=== PATIENT | male | born 1950 | race African-American/Black ===

== ENCOUNTER 2019-03-18 15:41 | Inpatient (IN) | payer MEDICARE, BC ==
[~2019-03-18] VITALS: Ht 172.7 cm; Wt 88.5 kg
[2019-03-18] VITALS (21 sets, daily range): BP systolic 109–138; BP diastolic 62–77
[~2019-03-18 15:41] MED LIST: ALLO300T2 MT; ASPI-1393 MT; CHOL200074 MT; HYDR25TA MT; LOSA100T32 MT; LOVA40TA73 MT; METF-416 MT; OMEG1CAP94 PO
[2019-03-18] MEDS ORDERED: LEVETIRACETAM 1000MG/100ML 100 ML IV ONE (16:00)
[2019-03-18 16:16] LABS: BASOPHILS % 1.2 % (0.0-2.0); CHLORIDE 103 mEq/L (98-107); EOSINOPHILS % 2.2 % (0.0-5.0); HEMATOCRIT. 36.8 % (42.0-52.0); HEMOGLOBIN. 11.9 g/dL (14.0-18.0); LYMPHOCYTES % 21.4 % (20.0-50.0); MEAN CORPUSCULAR HEMOGLOBIN 30.8 pg (28.0-32.0); MEAN CORPUSCULAR VOLUME 94.7 fL (80.0-94.0); MEAN PLATELET VOLUME 8.3 fl (7.4-10.4); MONOCYTES % 9.6 % (2.0-8.0); NEUTROPHILS % 65.6 % (40.0-76.0); PLATELET 233 x1000/uL (130-400); RED BLOOD CELL COUNT 3.88 mill/uL (4.7-6.1); RED CELL DISTRIBUTION WIDTH 13.1 % (11.6-14.6)
[2019-03-18 16:20] LABS: ETHANOL BLOOD < 10 mg/dL
[2019-03-18 16:21] LABS: PARTIAL THROMBOPLASTIN TIME 28.5 sec (23.4-31.0); PROTHROMBIN TIME 10.3 sec (9.6-11.0)
[2019-03-18 18:17] LABS: CLARITY URINE CLEAR (CLEAR); COLOR URINE YELLOW (YELLOW); KETONES URINE NEGATIVE (NEGATIVE); LEUKOCYTE ESTERASE URINE NEGATIVE (NEGATIVE); NITRITE URINE NEGATIVE (NEGATIVE); OCCULT BLOOD URINE NEGATIVE (NEGATIVE); PROTEIN URINE NEGATIVE (NEGATIVE); SPECIFIC GRAVITY URINE 1.034 (1.005-1.030); UROBILINOGEN URINE 0.2 E.U./dL (0.2-1.0)
[2019-03-18 18:34] LABS: *AMPHETAMINES SCREEN URINE NEGATIVE (NEGATIVE); *BARBITURATES SCREEN URINE NEGATIVE (NEGATIVE); *BENZODIAZEPINES SCREEN URINE NEGATIVE (NEGATIVE); *COCAINE SCREEN URINE NEGATIVE (NEGATIVE); METHADONE URINE SCREEN NEGATIVE (NEGATIVE); OPIATES URINE SCREEN NEGATIVE (NEGATIVE)
[2019-03-18 18:35] LABS: CANNABINOID URINE SCREEN NEGATIVE (NEGATIVE); PHENCYCLIDINE URINE SCREEN NEGATIVE (NEGATIVE)
[2019-03-18] MEDS ORDERED: MAGNESIUM/ALUMINUM HYDROXIDE/SIMETHICONE 30ML UDC PO PRN (19:00)
[2019-03-18] MEDS ORDERED: HYDROCODONE/ACETAMINOPHEN 5/325MG TABLET PO PRN (19:00)
[2019-03-18] MEDS ORDERED: ACETAMINOPHEN 325MG TABLET PO PRN (19:00)
[2019-03-18] MEDS ORDERED: DEXTROSE 50% WATER 50ML SYRINGE IV PRN (19:00)
[2019-03-18] MEDS ORDERED: CLONIDINE 0.1MG TABLET PO PRN (19:00)
[2019-03-18] MEDS ORDERED: MORPHINE SULFATE 2 MG/ML CPJ (NOT FOR IM USE) IV PRN (20:30)
[2019-03-18] MEDS ORDERED: NICARDIPINE 100 MG in SODIUM CHLORIDE 0.9% 60 ML IV PRN (20:30)
[2019-03-18] MEDS ORDERED: NITROPRUSSIDE 50 MG in SODIUM CHLORIDE 0.9% 250 ML IV PRN (20:45)
[2019-03-18] MEDS: LEVETIRACETAM 500 MG in SODIUM CHLORIDE 0.9% 100 ML IV SCH (21:20)
[2019-03-18] MEDS: DEXT 5%/0.45% NACL 1000ML 1,000 ML IV SCH (21:20)
[2019-03-19] VITALS (77 sets, daily range): BP systolic 91–150; BP diastolic 38–92
[2019-03-19] MEDS: DEXAMETHASONE 4MG/ML 1ML VIAL IV SCH ×5 (00:29→23:06)
[2019-03-19] MEDS: BLOOD SUGAR DIAGNOSTIC STRIP TEST SCH ×5 (00:29→23:11)
[2019-03-19 04:49] LABS: BASOPHILS % 0.4 % (0.0-2.0); EOSINOPHILS % 1.1 % (0.0-5.0); HEMATOCRIT. 36.4 % (42.0-52.0); HEMOGLOBIN. 11.8 g/dL (14.0-18.0); LYMPHOCYTES % 8.9 % (20.0-50.0); MEAN CORPUSCULAR HEMOGLOBIN 30.7 pg (28.0-32.0); MEAN PLATELET VOLUME 8.3 fl (7.4-10.4); MONOCYTES % 3.5 % (2.0-8.0); NEUTROPHILS % 86.1 % (40.0-76.0); PLATELET 232 x1000/uL (130-400); RED BLOOD CELL COUNT 3.84 mill/uL (4.7-6.1); RED CELL DISTRIBUTION WIDTH 12.9 % (11.6-14.6)
[2019-03-19 05:08] LABS: CHLORIDE 106 mEq/L (98-107)
[2019-03-19 05:14] LABS: PHOSPHORUS 3.3 mg/dL (2.5-4.9)
[2019-03-19 05:15] LABS: LDL CHOLESTEROL 78 mg/dL (5-100)
[2019-03-19 05:16] LABS: HDL CHOLESTEROL 39 mg/dL (40-59)
[2019-03-19] MEDS ORDERED: LIDOCAINE HCL/EPINEPHRINE 1%-EPI 1:100,000 20 ML VIAL ONE (05:31)
[2019-03-19] MEDS ORDERED: BACITRACIN 50,000 UNITS/VIAL ONE (05:32)
[2019-03-19] MEDS ORDERED: THROMBIN (BOVINE) 5000 UNITS/VIAL TOP ONE (05:32)
[2019-03-19] MEDS ORDERED: FENTANYL CITRATE/PF 50MCG/ML 2ML VIAL ONE ×3 (06:26→07:31)
[2019-03-19] MEDS ORDERED: ROCURONIUM BROMIDE 10MG/ML VIAL 5ML IV ONE (06:26)
[2019-03-19] MEDS ORDERED: PROPOFOL 200MG/20ML VIAL IV ONE (06:26)
[2019-03-19] MEDS ORDERED: NEOSTIGMINE METHYLSULFATE 1MG/ML 10 ML VIAL ONE (06:26)
[2019-03-19] MEDS ORDERED: MIDAZOLAM HCL 2 MG/2 ML VIAL ONE (06:27)
[2019-03-19] MEDS ORDERED: GLYCOPYRROLATE 0.2 MG/ML 2ML VIAL ONE ×2 (06:27→07:26)
[2019-03-19] MEDS ORDERED: ONDANSETRON HCL 4MG/2ML INJ ONE (06:41)
[2019-03-19] MEDS ORDERED: DEXAMETHASONE 4MG/ML 1ML VIAL ONE (06:41)
[2019-03-19] MEDS ORDERED: MEPERIDINE HCL/PF 25MG/ML CPJ IV PRN (07:00)
[2019-03-19] MEDS ORDERED: HYDROMORPHONE HCL/PF 2MG/ML CPJ IV PRN (07:00)
[2019-03-19] MEDS ORDERED: ONDANSETRON HCL 4MG/2ML INJ IV PRN (07:00)
[2019-03-19] MEDS ORDERED: LABETALOL HCL 5MG/ML VIAL 20ML IV PRN (07:00)
[2019-03-19] MEDS ORDERED: BACITRACIN 15GM TUBE TOP ONE (07:14)
[2019-03-19] MEDS ORDERED: SODIUM CHLORIDE 0.9% 10ML VIAL ONE (07:22)
[2019-03-19] MEDS ORDERED: LABETALOL HCL 5MG/ML VIAL 20ML IV ONE (07:22)
[2019-03-19] MEDS ORDERED: CEFAZOLIN SODIUM 1000MG/VIAL ONE (07:22)
[2019-03-19] MEDS: MORPHINE SULFATE 2 MG/ML CPJ (NOT FOR IM USE) IV PRN ×4 (07:53→19:15)
[2019-03-19] MEDS ORDERED: PROPOFOL 10MG/ML 100ML 100 ML IV PRN (08:15)
[2019-03-19] MEDS: LEVETIRACETAM 500 MG in SODIUM CHLORIDE 0.9% 100 ML IV SCH ×2 (09:02→21:28)
[2019-03-19] MEDS: NICARDIPINE 100 MG in SODIUM CHLORIDE 0.9% 60 ML IV PRN (10:52)
[2019-03-19] MEDS: DOCUSATE SODIUM 100MG CAPSULE PO SCH (10:53)
[2019-03-19] MEDS: DEXT 5%/0.45% NACL 1000ML 1,000 ML IV SCH (11:28)
[2019-03-19] MEDS: CEFAZOLIN 1000MG PREMIX 50 ML IV SCH ×2 (13:04→22:48)
[2019-03-19] MEDS ORDERED: CEFAZOLIN SODIUM 1000MG/VIAL IV SCH (14:00)
[2019-03-19] MEDS: INSULIN LISPRO 100 UNITS/ML SUBCUT SCH ×2 (17:47→23:15)
[2019-03-19] MEDS: DEXT 5%/LACTATED RINGERS 1,000 ML IV SCH (17:54)
[2019-03-20] VITALS (94 sets, daily range): BP systolic 91–146; BP diastolic 45–86
[2019-03-20] MEDS: NICARDIPINE 100 MG in SODIUM CHLORIDE 0.9% 60 ML IV PRN ×2 (01:51→19:54)
[2019-03-20 04:27] LABS: HEMATOCRIT. 38.2 % (42.0-52.0); HEMOGLOBIN. 12.4 g/dL (14.0-18.0); MEAN CORPUSCULAR HEMOGLOBIN 30.7 pg (28.0-32.0); MEAN CORPUSCULAR VOLUME 94.7 fL (80.0-94.0); MEAN PLATELET VOLUME 8.2 fl (7.4-10.4); PLATELET 234 x1000/uL (130-400); RED BLOOD CELL COUNT 4.03 mill/uL (4.7-6.1); RED CELL DISTRIBUTION WIDTH 13.2 % (11.6-14.6)
[2019-03-20 04:35] LABS: CHLORIDE 105 mEq/L (98-107)
[2019-03-20] MEDS: BLOOD SUGAR DIAGNOSTIC STRIP TEST SCH ×3 (05:05→18:00)
[2019-03-20] MEDS: INSULIN LISPRO 100 UNITS/ML SUBCUT SCH ×3 (05:08→18:30)
[2019-03-20] MEDS: DEXAMETHASONE 4MG/ML 1ML VIAL IV SCH ×3 (05:08→18:18)
[2019-03-20] MEDS: CEFAZOLIN 1000MG PREMIX 50 ML IV SCH (05:08)
[2019-03-20] MEDS: DOCUSATE SODIUM 100MG CAPSULE PO SCH (09:00)
[2019-03-20 09:19] LABS: PLATELET ESTIMATE NORMAL
[2019-03-20] MEDS: DEXT 5%/LACTATED RINGERS 1,000 ML IV SCH (12:46)
[2019-03-20] MEDS: LEVETIRACETAM 500 MG in SODIUM CHLORIDE 0.9% 100 ML IV SCH (12:46)
[2019-03-20] MEDS: FAMOTIDINE 20MG/2ML VIAL IV SCH (16:49)
[2019-03-20] MEDS: LEVETIRACETAM 750 MG in SODIUM CHLORIDE 0.9% 100 ML IV SCH (18:30)
[2019-03-20] MEDS: MORPHINE SULFATE 2 MG/ML CPJ (NOT FOR IM USE) IV PRN (21:50)
[2019-03-20] MEDS: ONDANSETRON HCL 4MG/2ML INJ IV PRN (22:05)
[2019-03-20] MEDS ORDERED: MORPHINE SULFATE 2 MG/ML CPJ (NOT FOR IM USE) IV NR (22:45)
[2019-03-21] VITALS (93 sets, daily range): BP systolic 93–157; BP diastolic 54–81
[2019-03-21] MEDS: BLOOD SUGAR DIAGNOSTIC STRIP TEST SCH ×4 (00:16→17:28)
[2019-03-21] MEDS: DEXAMETHASONE 4MG/ML 1ML VIAL IV SCH ×2 (00:22→05:24)
[2019-03-21] MEDS: INSULIN LISPRO 100 UNITS/ML SUBCUT SCH ×4 (00:23→17:28)
[2019-03-21] MEDS: DEXT 5%/LACTATED RINGERS 1,000 ML IV SCH ×2 (02:38→19:30)
[2019-03-21 05:09] LABS: CHLORIDE 110 mEq/L (98-107)
[2019-03-21 05:11] LABS: HEMATOCRIT. 38.6 % (42.0-52.0); HEMOGLOBIN. 12.3 g/dL (14.0-18.0); MEAN CORPUSCULAR HEMOGLOBIN 30.7 pg (28.0-32.0); MEAN CORPUSCULAR VOLUME 96.1 fL (80.0-94.0); MEAN PLATELET VOLUME 8.8 fl (7.4-10.4); PLATELET 227 x1000/uL (130-400); RED BLOOD CELL COUNT 4.02 mill/uL (4.7-6.1); RED CELL DISTRIBUTION WIDTH 13.1 % (11.6-14.6)
[2019-03-21] MEDS ORDERED: THROMBIN (BOVINE) 5000 UNITS/VIAL TOP ONE (06:01)
[2019-03-21] MEDS ORDERED: LIDOCAINE HCL/EPINEPHRINE 1%-EPI 1:100,000 20 ML VIAL ONE (06:02)
[2019-03-21] MEDS ORDERED: BACITRACIN 50,000 UNITS/VIAL ONE (06:02)
[2019-03-21] MEDS ORDERED: NORMAL SALINE 0.9% 10 ML SYR ONE (06:03)
[2019-03-21] MEDS ORDERED: BACITRACIN 15GM TUBE TOP ONE (06:14)
[2019-03-21] MEDS ORDERED: MIDAZOLAM HCL 2 MG/2 ML VIAL ONE (06:39)
[2019-03-21] MEDS ORDERED: FENTANYL CITRATE/PF 50MCG/ML 2ML VIAL ONE (06:39)
[2019-03-21] MEDS ORDERED: SUCCINYLCHOLINE CHLORIDE 200MG/10ML IV ONE (06:39)
[2019-03-21] MEDS ORDERED: PROPOFOL 200MG/20ML VIAL IV ONE (06:39)
[2019-03-21] MEDS ORDERED: LIDOCAINE HCL/PF 1% 10 MG/ML 5ML VIAL ONE (06:39)
[2019-03-21] MEDS ORDERED: ROCURONIUM BROMIDE 10MG/ML VIAL 5ML IV ONE (06:40)
[2019-03-21] MEDS: NICARDIPINE 100 MG in SODIUM CHLORIDE 0.9% 60 ML IV PRN (06:44)
[2019-03-21] MEDS ORDERED: EPHEDRINE SULFATE 50MG/ML VIAL ONE (06:48)
[2019-03-21] MEDS ORDERED: SODIUM CHLORIDE 0.9% 10ML VIAL ONE (06:48)
[2019-03-21] MEDS ORDERED: LABETALOL HCL 5MG/ML VIAL 20ML IV ONE (07:04)
[2019-03-21] MEDS ORDERED: PHENYLEPHRINE HCL 10 MG/ML 1ML (IV VIAL) IV ONE (07:08)
[2019-03-21] MEDS ORDERED: ONDANSETRON HCL 4MG/2ML INJ ONE (07:34)
[2019-03-21] MEDS: LEVETIRACETAM 750 MG in SODIUM CHLORIDE 0.9% 100 ML IV SCH ×2 (08:51→20:41)
[2019-03-21] MEDS: DOCUSATE SODIUM 100MG CAPSULE PO SCH (08:51)
[2019-03-21] MEDS: FAMOTIDINE 20MG/2ML VIAL IV SCH (08:51)
[2019-03-21 08:52] LABS: PLATELET ESTIMATE NORMAL
[2019-03-21] MEDS: MORPHINE SULFATE 2 MG/ML CPJ (NOT FOR IM USE) IV PRN ×2 (13:19→19:01)
[2019-03-21] MEDS: CEFAZOLIN 1000MG PREMIX 50 ML IV SCH ×2 (13:19→21:42)
[2019-03-21] MEDS ORDERED: CEFAZOLIN SODIUM 1000MG/VIAL IV SCH (14:00)
[2019-03-21] MEDS: ONDANSETRON HCL 4MG/2ML INJ IV PRN (19:57)
[2019-03-22] VITALS (59 sets, daily range): BP systolic 105–155; BP diastolic 63–97
[2019-03-22] MEDS: BLOOD SUGAR DIAGNOSTIC STRIP TEST SCH ×5 (00:27→23:57)
[2019-03-22] MEDS: INSULIN LISPRO 100 UNITS/ML SUBCUT SCH ×5 (00:30→23:57)
[2019-03-22 05:47] LABS: HEMATOCRIT. 34.9 % (42.0-52.0); HEMOGLOBIN. 11.2 g/dL (14.0-18.0); MEAN CORPUSCULAR HEMOGLOBIN 30.8 pg (28.0-32.0); MEAN CORPUSCULAR VOLUME 96.2 fL (80.0-94.0); MEAN PLATELET VOLUME 8.6 fl (7.4-10.4); PLATELET 210 x1000/uL (130-400); RED BLOOD CELL COUNT 3.63 mill/uL (4.7-6.1); RED CELL DISTRIBUTION WIDTH 13.2 % (11.6-14.6)
[2019-03-22] MEDS: DEXT 5%/LACTATED RINGERS 1,000 ML IV SCH (05:54)
[2019-03-22] MEDS: CEFAZOLIN 1000MG PREMIX 50 ML IV SCH ×3 (05:54→22:23)
[2019-03-22 06:01] LABS: CHLORIDE 113 mEq/L (98-107)
[2019-03-22] MEDS: MORPHINE SULFATE 2 MG/ML CPJ (NOT FOR IM USE) IV PRN ×5 (07:47→23:22)
[2019-03-22] MEDS: DOCUSATE SODIUM 100MG CAPSULE PO SCH (08:44)
[2019-03-22] MEDS: FAMOTIDINE 20MG/2ML VIAL IV SCH (09:35)
[2019-03-22] MEDS: LEVETIRACETAM 750 MG in SODIUM CHLORIDE 0.9% 100 ML IV SCH ×2 (09:35→21:36)
[2019-03-22] MEDS: ASPIRIN 81MG TABLET PO SCH (10:30)
[2019-03-22 11:21] LABS: PLATELET ESTIMATE NORMAL
[2019-03-22] MEDS: ENALAPRIL 1.25MG/ML VIAL 1ML IV PRN ×2 (12:35→17:51)
[2019-03-22] MEDS: HYDRALAZINE 20MG/ML VIAL IV PRN (18:16)
[2019-03-22] MEDS: NICARDIPINE 100 MG in SODIUM CHLORIDE 0.9% 60 ML IV PRN (22:24)
[2019-03-23] VITALS (97 sets, daily range): BP systolic 107–149; BP diastolic 49–114
[2019-03-23] MEDS: NICARDIPINE 100 MG in SODIUM CHLORIDE 0.9% 60 ML IV PRN ×2 (05:06→09:37)
[2019-03-23 05:40] LABS: HEMATOCRIT. 36.1 % (42.0-52.0); HEMOGLOBIN. 11.7 g/dL (14.0-18.0); MEAN CORPUSCULAR HEMOGLOBIN 30.8 pg (28.0-32.0); MEAN CORPUSCULAR VOLUME 95.4 fL (80.0-94.0); MEAN PLATELET VOLUME 8.6 fl (7.4-10.4); PLATELET 202 x1000/uL (130-400); RED BLOOD CELL COUNT 3.78 mill/uL (4.7-6.1); RED CELL DISTRIBUTION WIDTH 13.4 % (11.6-14.6)
[2019-03-23 05:52] LABS: CHLORIDE 111 mEq/L (98-107)
[2019-03-23] MEDS: INSULIN LISPRO 100 UNITS/ML SUBCUT SCH ×3 (06:00→17:58)
[2019-03-23] MEDS: BLOOD SUGAR DIAGNOSTIC STRIP TEST SCH ×3 (06:44→17:58)
[2019-03-23] MEDS: CEFAZOLIN 1000MG PREMIX 50 ML IV SCH (06:44)
[2019-03-23] MEDS: DEXT 5%/LACTATED RINGERS 1,000 ML IV SCH ×2 (06:45→20:42)
[2019-03-23] MEDS: LEVETIRACETAM 750 MG in SODIUM CHLORIDE 0.9% 100 ML IV SCH ×2 (07:56→20:42)
[2019-03-23] MEDS: FAMOTIDINE 20MG/2ML VIAL IV SCH (07:56)
[2019-03-23] MEDS: MORPHINE SULFATE 2 MG/ML CPJ (NOT FOR IM USE) IV PRN ×3 (07:57→15:37)
[2019-03-23] MEDS: ASPIRIN 81MG TABLET PO SCH (08:49)
[2019-03-23] MEDS: DOCUSATE SODIUM 100MG CAPSULE PO SCH (08:50)
[2019-03-23 09:28] LABS: PLATELET ESTIMATE NORMAL
[2019-03-23] MEDS: AMLODIPINE 5MG TABLET PO SCH ×2 (11:00→20:42)
[2019-03-23] MEDS: ENALAPRIL 1.25MG/ML VIAL 1ML IV PRN (16:34)
[2019-03-23] MEDS ORDERED: MORPHINE SULFATE 2 MG/ML CPJ (NOT FOR IM USE) IV PRN (21:30)
[2019-03-24] VITALS (80 sets, daily range): BP systolic 99–172; BP diastolic 53–85
[2019-03-24] MEDS: BLOOD SUGAR DIAGNOSTIC STRIP TEST SCH ×4 (00:21→18:21)
[2019-03-24] MEDS: NICARDIPINE 100 MG in SODIUM CHLORIDE 0.9% 60 ML IV PRN (01:11)
[2019-03-24] MEDS: HYDRALAZINE 20MG/ML VIAL IV PRN (01:11)
[2019-03-24 05:27] LABS: MEAN CORPUSCULAR HEMOGLOBIN 30.7 pg (28.0-32.0); MEAN CORPUSCULAR VOLUME 94.9 fL (80.0-94.0); MEAN PLATELET VOLUME 8.3 fl (7.4-10.4); PLATELET 180 x1000/uL (130-400); RED BLOOD CELL COUNT 3.58 mill/uL (4.7-6.1); RED CELL DISTRIBUTION WIDTH 12.9 % (11.6-14.6)
[2019-03-24 05:46] LABS: CHLORIDE 112 mEq/L (98-107)
[2019-03-24] MEDS: INSULIN LISPRO 100 UNITS/ML SUBCUT SCH ×4 (06:00→18:00)
[2019-03-24] MEDS: LEVETIRACETAM 750 MG in SODIUM CHLORIDE 0.9% 100 ML IV SCH ×2 (08:45→21:40)
[2019-03-24] MEDS: FAMOTIDINE 20MG/2ML VIAL IV SCH (08:45)
[2019-03-24] MEDS: DOCUSATE SODIUM 100MG CAPSULE PO SCH (08:45)
[2019-03-24] MEDS: AMLODIPINE 5MG TABLET PO SCH ×2 (08:47→21:40)
[2019-03-24] MEDS: ASPIRIN 81MG TABLET PO SCH (08:56)
[2019-03-24] MEDS ORDERED: IPRATROPIUM/ALBUTEROL 0.5-3(2.5)MG/3ML NEB HHN PRN (09:45)
[2019-03-24] MEDS ORDERED: CLONIDINE 0.1MG TABLET PO PRN (11:15)
[2019-03-24] MEDS: LOSARTAN POTASSIUM 100 MG TABLET PO SCH (11:35)
[2019-03-24] MEDS: DEXT 5%/LACTATED RINGERS 1,000 ML IV SCH (14:10)
[2019-03-24 21:10] LABS: PLATELET ESTIMATE NORMAL
[2019-03-25] VITALS (17 sets, daily range): BP systolic 134–178; BP diastolic 57–96
[2019-03-25 05:45] LABS: BASOPHILS % 0.1 % (0.0-2.0); EOSINOPHILS % 4.7 % (0.0-5.0); HEMATOCRIT. 34.3 % (42.0-52.0); HEMOGLOBIN. 11.1 g/dL (14.0-18.0); LYMPHOCYTES % 10.9 % (20.0-50.0); MEAN CORPUSCULAR HEMOGLOBIN 30.9 pg (28.0-32.0); MEAN PLATELET VOLUME 8.8 fl (7.4-10.4); MONOCYTES % 11.6 % (2.0-8.0); NEUTROPHILS % 72.7 % (40.0-76.0); PLATELET 174 x1000/uL (130-400); RED BLOOD CELL COUNT 3.58 mill/uL (4.7-6.1); RED CELL DISTRIBUTION WIDTH 13.1 % (11.6-14.6)
[2019-03-25 05:50] LABS: CHLORIDE 113 mEq/L (98-107)
[2019-03-25] MEDS: INSULIN LISPRO 100 UNITS/ML SUBCUT SCH ×4 (06:00→18:00)
[2019-03-25] MEDS: BLOOD SUGAR DIAGNOSTIC STRIP TEST SCH ×4 (06:00→18:40)
[2019-03-25] MEDS: ASPIRIN 81MG TABLET PO SCH (08:54)
[2019-03-25] MEDS: FAMOTIDINE 20MG/2ML VIAL IV SCH (08:54)
[2019-03-25] MEDS: AMLODIPINE 5MG TABLET PO SCH (08:55)
[2019-03-25] MEDS: LEVETIRACETAM 750 MG in SODIUM CHLORIDE 0.9% 100 ML IV SCH (08:55)
[2019-03-25] MEDS: LOSARTAN POTASSIUM 100 MG TABLET PO SCH (08:55)
[2019-03-25] MEDS: DOCUSATE SODIUM 100MG CAPSULE PO SCH (08:55)
[2019-03-25] MEDS: DEXT 5%/LACTATED RINGERS 1,000 ML IV SCH (08:56)
== END 2019-03-25 19:05 | DRG 25 ==
LOC: ER 16:00 → EDBEDREQSVC 17:28 → EDBEDREQ 17:28 → MICUSO 17:35 → EDBEDREQ 17:55 → EDBEDREQTM 17:55 → ENRESERV 18:13 → 7WST 03-25 11:19
PROVIDERS: ADMIT Family Medicine Adult Medicine; ATTEND Family Medicine Adult Medicine
PROC: 00C40ZZ Extirpation of Matter from Intracranial Subdural Space, Open Approach (ICD-10-PCS; principal; 2019-03-19)
PROC: 00U207Z Supplement Dura Mater with Autologous Tissue Substitute, Open Approach (ICD-10-PCS; 2019-03-19)
PROC: 4A103BD Monitoring of Intracranial Pressure, Percutaneous Approach (ICD-10-PCS; 2019-03-19)
PROC: 00C40ZZ Extirpation of Matter from Intracranial Subdural Space, Open Approach (ICD-10-PCS; 2019-03-21)
PROC: 00U207Z Supplement Dura Mater with Autologous Tissue Substitute, Open Approach (ICD-10-PCS; 2019-03-21)
PROC: 4A103BD Monitoring of Intracranial Pressure, Percutaneous Approach (ICD-10-PCS; 2019-03-21)
DX: S06.5X0A Traumatic subdural hemorrhage without loss of consciousness, initial encounter (principal); G82.50 Quadriplegia, unspecified; G93.40 Encephalopathy, unspecified; R47.01 Aphasia; E87.0 Hyperosmolality and hypernatremia; D64.9 Anemia, unspecified; R13.10 Dysphagia, unspecified; R47.1 Dysarthria and anarthria; N18.9 Chronic kidney disease, unspecified; I13.10 Hypertensive heart and chronic kidney disease without heart failure, with stage 1 through stage 4 chronic kidney disease, or unspecified chronic kidney disease; R06.89 Other abnormalities of breathing; I25.10 Atherosclerotic heart disease of native coronary artery without angina pectoris; E78.5 Hyperlipidemia, unspecified; E78.00 Pure hypercholesterolemia, unspecified; E11.22 Type 2 diabetes mellitus with diabetic chronic kidney disease; W22.8XXA Striking against or struck by other objects, initial encounter; Y93.89 Activity, other specified; Y99.8 Other external cause status; Y92.89 Other specified places as the place of occurrence of the external cause; Z95.5 Presence of coronary angioplasty implant and graft; Z85.46 Personal history of malignant neoplasm of prostate; Z82.49 Family history of ischemic heart disease and other diseases of the circulatory system; Z78.1 Physical restraint status; Z79.02 Long term (current) use of antithrombotics/antiplatelets; Z79.82 Long term (current) use of aspirin; Z79.899 Other long term (current) drug therapy
CPT/HCPCS: 36415; 71045; 80048; 80061; 80305; 80320; 82962; 83036; 83735; 84100; 84443; 84478; 86850; 86900; 88304; 88305; 92523; 92610; 93005; 93306; 93880; 94002; 94003; 96365; 97116; 97162; 97167; 97530; 97535; 99291; C1713; C1758; J0330; J0360; J0690; J1100; J1815; J1953; J2250; J2270; J2370; J2405; J2704; J2710; J3010; J3490; J7050; J7120; J7121; A4315; G0480

== ENCOUNTER 2019-03-25 19:05 | Inpatient (IN) | payer MEDICARE, BC ==
[~2019-03-25] VITALS: Ht 172.7 cm; Wt 88.5 kg
[2019-03-25 20:00] VITALS: BP 140/71
[2019-03-25] MEDS ORDERED: DEXTROSE 50% WATER 50ML SYRINGE IV PRN (20:30)
[2019-03-25] MEDS ORDERED: IPRATROPIUM/ALBUTEROL 0.5-3(2.5)MG/3ML NEB HHN PRN (20:30)
[2019-03-25] MEDS ORDERED: MAGNESIUM/ALUMINUM HYDROXIDE/SIMETHICONE 30ML UDC PO PRN (20:30)
[2019-03-25] MEDS ORDERED: LACTULOSE 20G/30ML UDC PO NR (20:30)
[2019-03-25] MEDS ORDERED: ACETAMINOPHEN 650MG/20.3ML UDC PO PRN (20:30)
[2019-03-25] MEDS ORDERED: CLONIDINE 0.1MG TABLET PO PRN (20:30)
[2019-03-25] MEDS ORDERED: ONDANSETRON HCL 4MG/2ML INJ IV PRN (20:30)
[2019-03-25] MEDS ORDERED: HYDROCODONE/ACETAMINOPHEN 5/325MG TABLET PO PRN (21:06)
[2019-03-25] MEDS: LEVETIRACETAM 500MG TABLET PO SCH (21:33)
[2019-03-25] MEDS: AMLODIPINE 5MG TABLET PO SCH (21:33)
[2019-03-26] MEDS: BLOOD SUGAR DIAGNOSTIC STRIP TEST SCH ×5 (00:41→23:32)
[2019-03-26] MEDS: INSULIN LISPRO 100 UNITS/ML SUBCUT SCH ×5 (06:00→23:32)
[2019-03-26 06:24] LABS: BASOPHILS % 0.2 % (0.0-2.0); EOSINOPHILS % 7.9 % (0.0-5.0); HEMATOCRIT. 32.4 % (42.0-52.0); HEMOGLOBIN. 10.6 g/dL (14.0-18.0); LYMPHOCYTES % 15.5 % (20.0-50.0); MEAN CORPUSCULAR VOLUME 94.9 fL (80.0-94.0); MEAN PLATELET VOLUME 8.7 fl (7.4-10.4); MONOCYTES % 10.7 % (2.0-8.0); NEUTROPHILS % 65.7 % (40.0-76.0); PLATELET 186 x1000/uL (130-400); RED BLOOD CELL COUNT 3.41 mill/uL (4.7-6.1); RED CELL DISTRIBUTION WIDTH 12.9 % (11.6-14.6)
[2019-03-26 07:54] LABS: CHLORIDE 112 mEq/L (98-107)
[2019-03-26 08:00] VITALS: BP 137/53
[2019-03-26] MEDS: ASPIRIN 81MG TABLET PO SCH (09:07)
[2019-03-26] MEDS: DOCUSATE SODIUM 100MG CAPSULE PO SCH (09:07)
[2019-03-26] MEDS: FAMOTIDINE 20MG TABLET PO SCH (09:07)
[2019-03-26] MEDS: LOSARTAN POTASSIUM 100 MG TABLET PO SCH (09:07)
[2019-03-26] MEDS: LEVETIRACETAM 500MG TABLET PO SCH ×2 (09:08→21:27)
[2019-03-26] MEDS: AMLODIPINE 5MG TABLET PO SCH ×2 (09:08→21:28)
[2019-03-26] MEDS ORDERED: BISACODYL 10MG SUPP PR NR (17:00)
[2019-03-26] MEDS: LACTULOSE 20G/30ML UDC PO PRN (18:18)
[2019-03-26 20:00] VITALS: BP 137/74
[2019-03-27] MEDS ORDERED: BISACODYL 10MG SUPP PR SCH (00:43)
[2019-03-27] MEDS: INSULIN LISPRO 100 UNITS/ML SUBCUT SCH ×4 (05:31→23:49)
[2019-03-27] MEDS: BLOOD SUGAR DIAGNOSTIC STRIP TEST SCH ×4 (05:32→23:49)
[2019-03-27 08:41] VITALS: BP 148/77
[2019-03-27] MEDS: DOCUSATE SODIUM 100MG CAPSULE PO SCH (09:58)
[2019-03-27] MEDS: LEVETIRACETAM 500MG TABLET PO SCH ×2 (09:59→21:32)
[2019-03-27] MEDS: FAMOTIDINE 20MG TABLET PO SCH (09:59)
[2019-03-27] MEDS: AMLODIPINE 5MG TABLET PO SCH ×2 (09:59→21:32)
[2019-03-27] MEDS: LOSARTAN POTASSIUM 100 MG TABLET PO SCH (09:59)
[2019-03-27] MEDS: ASPIRIN 81MG TABLET PO SCH (09:59)
[2019-03-27 16:13] LABS: CLARITY URINE CLEAR (CLEAR); COLOR URINE YELLOW (YELLOW); KETONES URINE NEGATIVE (NEGATIVE); LEUKOCYTE ESTERASE URINE NEGATIVE (NEGATIVE); NITRITE URINE NEGATIVE (NEGATIVE); OCCULT BLOOD URINE 1+ (NEGATIVE); PROTEIN URINE NEGATIVE (NEGATIVE); SPECIFIC GRAVITY URINE 1.023 (1.005-1.030); UROBILINOGEN URINE 0.2 E.U./dL (0.2-1.0)
[2019-03-27 20:00] VITALS: BP 129/59
[2019-03-28] MEDS: INSULIN LISPRO 100 UNITS/ML SUBCUT SCH ×3 (06:00→17:56)
[2019-03-28] MEDS: BLOOD SUGAR DIAGNOSTIC STRIP TEST SCH ×3 (06:17→17:55)
[2019-03-28 08:17] VITALS: BP 144/77
[2019-03-28 08:24] LABS: BASOPHILS % 0.5 % (0.0-2.0); EOSINOPHILS % 7.8 % (0.0-5.0); HEMATOCRIT. 33.9 % (42.0-52.0); LYMPHOCYTES % 21.5 % (20.0-50.0); MEAN CORPUSCULAR HEMOGLOBIN 30.8 pg (28.0-32.0); MEAN CORPUSCULAR VOLUME 94.5 fL (80.0-94.0); MEAN PLATELET VOLUME 8.8 fl (7.4-10.4); MONOCYTES % 11.6 % (2.0-8.0); NEUTROPHILS % 58.6 % (40.0-76.0); PLATELET 202 x1000/uL (130-400); RED BLOOD CELL COUNT 3.58 mill/uL (4.7-6.1); RED CELL DISTRIBUTION WIDTH 13.4 % (11.6-14.6)
[2019-03-28 08:30] LABS: CHLORIDE 110 mEq/L (98-107)
[2019-03-28] MEDS: LOSARTAN POTASSIUM 100 MG TABLET PO SCH (08:38)
[2019-03-28] MEDS: ASPIRIN 81MG TABLET PO SCH (08:38)
[2019-03-28] MEDS: AMLODIPINE 5MG TABLET PO SCH ×2 (08:38→21:41)
[2019-03-28] MEDS: DOCUSATE SODIUM 100MG CAPSULE PO SCH (08:39)
[2019-03-28] MEDS: LEVETIRACETAM 500MG TABLET PO SCH ×2 (08:39→21:41)
[2019-03-28] MEDS: FAMOTIDINE 20MG TABLET PO SCH (08:39)
[2019-03-28 08:41] LABS: LDL CHOLESTEROL 74 mg/dL (5-100); PHOSPHORUS 2.5 mg/dL (2.5-4.9)
[2019-03-28 08:44] LABS: HDL CHOLESTEROL 33 mg/dL (40-59); TOTAL IRON BINDING CAPACITY 236 ug/dL (250-450)
[2019-03-28 09:18] LABS: PROSTRATE SPECIFIC AG TOTAL 0.07 ng/mL (0.0-4.0)
[2019-03-28 10:26] LABS: FOLIC ACID (FOLATE) SERUM 16.3 ng/mL (>5.38)
[2019-03-28] MEDS: CYANOCOBALAMIN 1000MCG/ML VIAL IM SCH (12:56)
[2019-03-28 20:00] VITALS: BP 143/72
[2019-03-29] MEDS: BLOOD SUGAR DIAGNOSTIC STRIP TEST SCH ×5 (05:04→23:14)
[2019-03-29] MEDS: INSULIN LISPRO 100 UNITS/ML SUBCUT SCH ×5 (05:04→23:14)
[2019-03-29 07:42] VITALS: BP 119/68
[2019-03-29] MEDS: ASPIRIN 81MG TABLET PO SCH ×2 (08:01→08:28)
[2019-03-29] MEDS: AMLODIPINE 5MG TABLET PO SCH ×2 (08:28→20:13)
[2019-03-29] MEDS: FAMOTIDINE 20MG TABLET PO SCH (08:29)
[2019-03-29] MEDS: LEVETIRACETAM 500MG TABLET PO SCH ×2 (08:29→20:13)
[2019-03-29] MEDS: CYANOCOBALAMIN 1000MCG/ML VIAL IM SCH (08:29)
[2019-03-29] MEDS: DOCUSATE SODIUM 100MG CAPSULE PO SCH (08:35)
[2019-03-29] MEDS: LOSARTAN POTASSIUM 50 MG TABLET PO SCH (09:05)
[2019-03-29 20:00] VITALS: BP 127/70
[2019-03-29] MEDS: ATORVASTATIN CALCIUM 10MG TABLET PO SCH (20:13)
[2019-03-30] MEDS: INSULIN LISPRO 100 UNITS/ML SUBCUT SCH ×5 (05:31→21:00)
[2019-03-30] MEDS: BLOOD SUGAR DIAGNOSTIC STRIP TEST SCH ×4 (05:31→21:10)
[2019-03-30 07:52] VITALS: BP 121/67
[2019-03-30 08:01] VITALS: BP 121/67
[2019-03-30] MEDS: AMLODIPINE 5MG TABLET PO SCH ×2 (08:39→21:09)
[2019-03-30] MEDS: FAMOTIDINE 20MG TABLET PO SCH (08:39)
[2019-03-30] MEDS: DOCUSATE SODIUM 100MG CAPSULE PO SCH (08:39)
[2019-03-30] MEDS: LOSARTAN POTASSIUM 50 MG TABLET PO SCH (08:39)
[2019-03-30] MEDS: ASPIRIN 81MG TABLET PO SCH (08:39)
[2019-03-30] MEDS: CYANOCOBALAMIN 1000MCG/ML VIAL IM SCH (08:40)
[2019-03-30] MEDS: LEVETIRACETAM 500MG TABLET PO SCH ×2 (08:40→21:10)
[2019-03-30 20:00] VITALS: BP 135/72
[2019-03-30] MEDS: ATORVASTATIN CALCIUM 10MG TABLET PO SCH (21:09)
[2019-03-31] MEDS: BLOOD SUGAR DIAGNOSTIC STRIP TEST SCH ×4 (06:52→21:19)
[2019-03-31] MEDS: INSULIN LISPRO 100 UNITS/ML SUBCUT SCH ×4 (06:52→21:00)
[2019-03-31 07:17] LABS: BASOPHILS % 1.2 % (0.0-2.0); EOSINOPHILS % 5.2 % (0.0-5.0); HEMATOCRIT. 36.1 % (42.0-52.0); HEMOGLOBIN. 11.5 g/dL (14.0-18.0); LYMPHOCYTES % 23.4 % (20.0-50.0); MEAN CORPUSCULAR HEMOGLOBIN 30.6 pg (28.0-32.0); MEAN CORPUSCULAR VOLUME 95.5 fL (80.0-94.0); MEAN PLATELET VOLUME 8.4 fl (7.4-10.4); MONOCYTES % 11.2 % (2.0-8.0); PLATELET 227 x1000/uL (130-400); RED BLOOD CELL COUNT 3.77 mill/uL (4.7-6.1); RED CELL DISTRIBUTION WIDTH 13.4 % (11.6-14.6)
[2019-03-31 07:39] LABS: CHLORIDE 109 mEq/L (98-107)
[2019-03-31 07:47] VITALS: BP 113/71
[2019-03-31] MEDS: CYANOCOBALAMIN 1000MCG/ML VIAL IM SCH (08:39)
[2019-03-31] MEDS: DOCUSATE SODIUM 100MG CAPSULE PO SCH (08:39)
[2019-03-31] MEDS: LOSARTAN POTASSIUM 50 MG TABLET PO SCH (08:40)
[2019-03-31] MEDS: ASPIRIN 81MG TABLET PO SCH (08:40)
[2019-03-31] MEDS: FAMOTIDINE 20MG TABLET PO SCH (08:40)
[2019-03-31] MEDS: AMLODIPINE 5MG TABLET PO SCH ×2 (08:40→21:00)
[2019-03-31] MEDS: LEVETIRACETAM 500MG TABLET PO SCH ×2 (08:40→21:19)
[2019-03-31 20:00] VITALS: BP 115/67
[2019-03-31] MEDS: ATORVASTATIN CALCIUM 10MG TABLET PO SCH (21:19)
[2019-04-01 04:19] LABS: 25-HYDROXY VITAMIN D3 42 ng/mL (.)
[2019-04-01] MEDS: INSULIN LISPRO 100 UNITS/ML SUBCUT SCH ×4 (06:15→21:00)
[2019-04-01] MEDS: BLOOD SUGAR DIAGNOSTIC STRIP TEST SCH ×4 (06:15→21:00)
[2019-04-01 08:04] VITALS: BP 125/70
[2019-04-01] MEDS: LOSARTAN POTASSIUM 50 MG TABLET PO SCH (08:28)
[2019-04-01] MEDS: DOCUSATE SODIUM 100MG CAPSULE PO SCH (08:28)
[2019-04-01] MEDS: LEVETIRACETAM 500MG TABLET PO SCH ×2 (08:28→22:24)
[2019-04-01] MEDS: FAMOTIDINE 20MG TABLET PO SCH (08:28)
[2019-04-01] MEDS: ASPIRIN 81MG TABLET PO SCH (08:28)
[2019-04-01] MEDS: CYANOCOBALAMIN 1000MCG/ML VIAL IM SCH (08:29)
[2019-04-01] MEDS: AMLODIPINE 5MG TABLET PO SCH ×2 (08:29→21:00)
[2019-04-01] MEDS: LACTULOSE 20G/30ML UDC PO PRN (12:21)
[2019-04-01] MEDS: LACTULOSE 20G/30ML UDC PO SCH ×2 (16:00→22:26)
[2019-04-01 20:24] VITALS: BP 104/66
[2019-04-01] MEDS: ATORVASTATIN CALCIUM 10MG TABLET PO SCH (22:24)
[2019-04-02] MEDS: LACTULOSE 20G/30ML UDC PO SCH ×2 (05:59)
[2019-04-02] MEDS: BLOOD SUGAR DIAGNOSTIC STRIP TEST SCH ×4 (06:04→21:00)
[2019-04-02] MEDS: INSULIN LISPRO 100 UNITS/ML SUBCUT SCH ×4 (07:59→21:00)
[2019-04-02 08:00] VITALS: BP 123/58
[2019-04-02] MEDS: LOSARTAN POTASSIUM 50 MG TABLET PO SCH (08:49)
[2019-04-02] MEDS: AMLODIPINE 5MG TABLET PO SCH ×2 (08:49→21:00)
[2019-04-02] MEDS: DOCUSATE SODIUM 100MG CAPSULE PO SCH (08:49)
[2019-04-02] MEDS: ASPIRIN 81MG TABLET PO SCH (08:49)
[2019-04-02] MEDS: FAMOTIDINE 20MG TABLET PO SCH (08:49)
[2019-04-02] MEDS: CYANOCOBALAMIN 1000MCG/ML VIAL IM SCH (08:50)
[2019-04-02] MEDS: LEVETIRACETAM 500MG TABLET PO SCH ×2 (08:50→22:04)
[2019-04-02 12:28] LABS: HEMATOCRIT 33.9 % (42.0-52.0); HEMOGLOBIN 10.9 g/dL (14.0-18.0); MEAN CORPUSCULAR HEMOGLOBIN 30.6 pg (28.0-32.0); MEAN CORPUSCULAR VOLUME 95.4 fL (80.0-94.0); PLATELET 213 x1000/uL (130-400); RED BLOOD CELL COUNT 3.56 mill/uL (4.7-6.1); RED CELL DISTRIBUTION WIDTH 13.4 % (11.6-14.6)
[2019-04-02 12:36] LABS: CHLORIDE 108 mEq/L (98-107)
[2019-04-02 20:00] VITALS: BP 110/65
[2019-04-02] MEDS: ATORVASTATIN CALCIUM 10MG TABLET PO SCH (22:04)
[2019-04-03] MEDS: BLOOD SUGAR DIAGNOSTIC STRIP TEST SCH ×2 (06:30→11:37)
[2019-04-03 06:45] LABS: CHLORIDE 109 mEq/L (98-107)
[2019-04-03 07:04] LABS: EOSINOPHILS % 4.8 % (0.0-5.0); HEMOGLOBIN. 10.8 g/dL (14.0-18.0); MEAN CORPUSCULAR HEMOGLOBIN 31.2 pg (28.0-32.0); MEAN CORPUSCULAR VOLUME 95.4 fL (80.0-94.0); MEAN PLATELET VOLUME 8.2 fl (7.4-10.4); MONOCYTES % 10.9 % (2.0-8.0); NEUTROPHILS % 64.3 % (40.0-76.0); PLATELET 224 x1000/uL (130-400); RED BLOOD CELL COUNT 3.45 mill/uL (4.7-6.1); RED CELL DISTRIBUTION WIDTH 13.6 % (11.6-14.6)
[2019-04-03 08:00] VITALS: BP 119/68
[2019-04-03] MEDS: AMLODIPINE 5MG TABLET PO SCH (08:58)
[2019-04-03] MEDS: CYANOCOBALAMIN 1000MCG/ML VIAL IM SCH (08:58)
[2019-04-03] MEDS: INSULIN LISPRO 100 UNITS/ML SUBCUT SCH ×2 (09:00→13:00)
[2019-04-03] MEDS: LEVETIRACETAM 500MG TABLET PO SCH (09:01)
[2019-04-03] MEDS: DOCUSATE SODIUM 100MG CAPSULE PO SCH (09:01)
[2019-04-03] MEDS: LOSARTAN POTASSIUM 50 MG TABLET PO SCH (09:01)
[2019-04-03] MEDS: ASPIRIN 81MG TABLET PO SCH (09:01)
[2019-04-03] MEDS: FAMOTIDINE 20MG TABLET PO SCH ×2 (09:02→09:05)
[2019-04-03 10:05] VITALS: BP 119/68
== END 2019-04-03 14:12 | disposition home health service (06) | DRG 82 ==
PROVIDERS: ADMIT Physical Medicine & Rehabilitation Spinal Cord Injury Medicine; ATTEND Family Medicine Adult Medicine
PROC: 4A10X4Z Monitoring of Central Nervous Electrical Activity, External Approach (ICD-10-PCS; principal; 2019-03-26)
DX: S06.5X9A Traumatic subdural hemorrhage with loss of consciousness of unspecified duration, initial encounter (principal); G82.50 Quadriplegia, unspecified; R47.01 Aphasia; E87.0 Hyperosmolality and hypernatremia; N17.9 Acute kidney failure, unspecified; G93.49 Other encephalopathy; X58.XXXA Exposure to other specified factors, initial encounter; I25.10 Atherosclerotic heart disease of native coronary artery without angina pectoris; D64.9 Anemia, unspecified; N18.9 Chronic kidney disease, unspecified; I12.9 Hypertensive chronic kidney disease with stage 1 through stage 4 chronic kidney disease, or unspecified chronic kidney disease; E11.22 Type 2 diabetes mellitus with diabetic chronic kidney disease; E78.5 Hyperlipidemia, unspecified; R13.10 Dysphagia, unspecified; R47.1 Dysarthria and anarthria; R53.81 Other malaise; R26.9 Unspecified abnormalities of gait and mobility; E53.8 Deficiency of other specified B group vitamins; D63.8 Anemia in other chronic diseases classified elsewhere; Z79.4 Long term (current) use of insulin; Y93.89 Activity, other specified; Y92.89 Other specified places as the place of occurrence of the external cause; Z95.5 Presence of coronary angioplasty implant and graft; Y99.8 Other external cause status; Z85.46 Personal history of malignant neoplasm of prostate; Z79.899 Other long term (current) drug therapy; Z79.82 Long term (current) use of aspirin; Z82.49 Family history of ischemic heart disease and other diseases of the circulatory system
CPT/HCPCS: 36415; 80048; 80061; 82140; 82306; 82607; 82728; 82746; 82962; 83036; 83540; 83550; 83735; 84100; 84134; 84153; 84443; 85027; 92523; 92610; 93970; 97112; 97116; 97162; 97167; 97530; 97535; J1815; J3420; G0103

== ENCOUNTER 2019-04-21 12:12 | Emergency (ER) | payer MEDICARE, BC ==
[~2019-04-21] VITALS: Ht 172.7 cm; Wt 83.0 kg
[~2019-04-21 12:12] MED LIST changes: -HYDR25TA MT; -LOVA40TA73 MT
[2019-04-21 14:12] LABS: BASOPHILS % 2.1 % (0.0-2.0); EOSINOPHILS % 6.4 % (0.0-5.0); HEMATOCRIT. 31.6 % (42.0-52.0); HEMOGLOBIN. 10.1 g/dL (14.0-18.0); LYMPHOCYTES % 27.6 % (20.0-50.0); MEAN CORPUSCULAR HEMOGLOBIN 31.4 pg (28.0-32.0); MEAN CORPUSCULAR VOLUME 97.6 fL (80.0-94.0); MEAN PLATELET VOLUME 7.8 fl (7.4-10.4); MONOCYTES % 12.1 % (2.0-8.0); NEUTROPHILS % 51.8 % (40.0-76.0); PLATELET 197 x1000/uL (130-400); RED BLOOD CELL COUNT 3.24 mill/uL (4.7-6.1); RED CELL DISTRIBUTION WIDTH 14.4 % (11.6-14.6)
[2019-04-21 14:19] LABS: CHLORIDE 112 mEq/L (98-107)
[2019-04-21 14:30] LABS: CLARITY URINE CLEAR (CLEAR); COLOR URINE YELLOW (YELLOW); KETONES URINE NEGATIVE (NEGATIVE); LEUKOCYTE ESTERASE URINE NEGATIVE (NEGATIVE); NITRITE URINE NEGATIVE (NEGATIVE); OCCULT BLOOD URINE NEGATIVE (NEGATIVE); PROTEIN URINE NEGATIVE (NEGATIVE); SPECIFIC GRAVITY URINE 1.018 (1.005-1.030)
[2019-04-21 15:08] VITALS: BP 110/65
== END 2019-04-21 15:25 | disposition home or self-care (01) ==
LOC: ER 12:12
DX: I62.03 Nontraumatic chronic subdural hemorrhage (principal)
CPT/HCPCS: 36415; 93005; 99284